=== PATIENT | female | born 1955 | race Caucasian/White ===

== ENCOUNTER 2016-06-08 10:22 | Emergency (ER) | payer BC ==
[2016-06-08] MEDS ORDERED: LACTATED RINGERS 1,000 ML ONE ×2 (10:44→12:01)
[2016-06-08 11:02] LABS: ABSOLUTE NEUTROPHIL COUNT 7.8 K/mm3 (1.8-7.7); BASO % 0.2 % (0.2-1.0); HEMATOCRIT 31.2 % (37.0-47.0); HEMOGLOBIN 10.1 gm/l (12.0-16.0); IMM NEUT # 0.1 K/mm3 (0-0.2); IMM NEUT% 0.5 % (0-1); LYMPH # 0.8 (1.0-4.8); LYMPH % 8.2 % (15-45); MEAN CELL VOLUME 95.1 fl (81.0-99.0); MEAN CORPUSCULAR HEMOGLOBIN 30.8 pg (27.0-31.0); MEAN CORPUSCULAR HGB CONC 32.4 g/dl (33.0-37.0); MEAN PLATELET VOLUME 11.4 fl (7.4-10.4); MONO # 0.6 (0.0-0.8); MONO % 6.8 % (4-12); NEUT % 84.3 % (43-75); PLATELET COUNT 174 K/mm3 (130-400)
[2016-06-08 11:14] LABS: ALB/GLOB RATIO 1.4 (>1.0); ALBUMIN 4.1 gm/dL (3.5-5.7); CALCIUM 9.8 mg/dL (8.6-10.3)
[2016-06-08] MEDS ORDERED: DIAZEPAM 5 MG/ML SYRINGE 2 ML ONE ×2 (12:01→14:00)
--- NOTE | 2016-06-08 12:13 | RAD ---
CHEST - 2 VIEWS COMPARISON: Chest 2 views, 04/26/2013 HISTORY: Vomiting for 24 hours. Then drank alcohol two nights ago. FINDINGS: Views: Frontal and lateral chest Lungs: Normal Heart and vessels: Normal Trachea and bronchi: Normal Mediastinum and deondre: Normal Costophrenic sulci: Normal Chest wall and bones: Normal. Upper abdomen: Cholecystectomy clips. IMPRESSION: Negative 2 view chest.
--- NOTE | 2016-06-08 13:08 | US ---
ABDOMINAL-COMPLETE COMPARISON: None. HISTORY: 60-year-old female with vomiting for 24 hours. Alcohol binge 2 nights ago. Evaluate pancreas, gallbladder, and liver. FINDINGS: Liver: Mild perihepatic fluid collection. Length 15.4 cm. Very echogenic, coarse, and dense. Bidirectional flow, difficult to get the stent waveform, in the portal vein. Gallbladder: Removed. Common hepatic duct: 3 mm Common bile duct: 6 mm Pancreas: Incomplete visualization because of bowel gas. No main pancreatic bile duct dilation or pancreatic fluid collection. Spleen: Length 9.7 cm. Volume 132 mL. Both normal. Right kidney: Length 11.8 cm. No mass, cyst, calcification, or hydronephrosis. Left kidney: Length 11.1 cm. Inferior pole exophytic 1.5 x 1.7 x 1.9 cm cyst. Aorta: Normal diameter, proximal 2.3 cm, mid 2.0 cm, and inferior 1.7 cm. Inferior vena cava: Normal. Fluid: Mild perihepatic. IMPRESSION: 1. Cirrhotic. Liver with mild amount perihepatic fluid. 2. Very limited evaluation of the pancreas. The region seen are normal. 3. Cholecystectomy. 4. Simple cyst of left kidney. The report was sent to the emergency department electronic medical record system, 06/08/2016 at 13:09.
[2016-06-08 13:13] LABS: VENOUS BLOOD GAS BASE EXCESS -1.2 mmol/L (-2.0-2.0); VENOUS BLOOD GAS HCO3 22.9 mmol/L (22.0-27.0)
[2016-06-08 14:19] LABS: SPECIFIC GRAVITY 1.025 (1.001-1.030); URINE BILIRUBIN NEGATIVE (NEGATIVE); URINE BLOOD NEGATIVE (NEGATIVE); URINE COLOR AMBER; URINE GLUCOSE (UA) NEGATIVE (NEGATIVE); URINE LEUKOCYTE ESTERASE NEGATIVE (NEGATIVE); URINE NITRITE NEGATIVE (NEGATIVE); URINE PROTEIN TRACE (NEGATIVE); URINE UROBILINOGEN NORMAL (0-1 mg/dl)
[2016-06-08 14:20] LABS: URINE APPEARANCE CLEAR
[2016-06-08] MEDS ORDERED: ONDANSETRON 4 MG ODT TAB ONE (15:29)
== END 2016-06-08 16:24 | disposition home or self-care (01) ==
LOC: ED 10:22
DX: K70.10 Alcoholic hepatitis without ascites (principal); F10.20 Alcohol dependence, uncomplicated; R00.0 Tachycardia, unspecified; E03.9 Hypothyroidism, unspecified; R11.2 Nausea with vomiting, unspecified
CPT/HCPCS: 83690; 82140; 82803; 85025; 80053; 80307; 83735; 81003; 71020; 76700; 96376; 99284 ×2; 96374; 96361; 93005; J3360 ×2; J7120 ×2; A9270